=== PATIENT | male | born 1990 | race Caucasian/White ===

== ENCOUNTER 2018-03-23 08:17 | Emergency (ER) | payer OTHER ==
[~2018-03-23] VITALS: Ht 182.9 cm; Wt 98.9 kg
[2018-03-23] MEDS ORDERED: KEFLEX500 M1 PO (09:34)
[2018-03-23 09:48] VITALS: BP 113/70
== END 2018-03-23 09:51 | disposition home or self-care (01) ==
LOC: ER 08:17
DX: S81.012A Laceration without foreign body, left knee, initial encounter (principal); W25.XXXA Contact with sharp glass, initial encounter; Y93.89 Activity, other specified; Y92.89 Other specified places as the place of occurrence of the external cause; Y99.8 Other external cause status